=== PATIENT | male | born 1975 | race African-American/Black ===

== ENCOUNTER 2021-03-01 15:09 | Emergency (ER) | payer MEDICAID ==
[~2021-03-01] VITALS: Ht 175.3 cm; Wt 70.0 kg
[2021-03-01] MEDS ORDERED: ACETAMINOPHEN 325MG TABLET PO STA (15:26)
[2021-03-01] MEDS ORDERED: LIDOCAINE HCL 1% 20ML VIAL (Pyxis) INJ INFIL NR (17:15)
[2021-03-01] MEDS ORDERED: NAPR-681 PO (17:43)
[2021-03-01 18:07] VITALS: BP 138/77
== END 2021-03-01 18:08 | disposition home or self-care (01) ==
LOC: ER 15:09
DX: S62.336A Displaced fracture of neck of fifth metacarpal bone, right hand, initial encounter for closed fracture (principal); X58.XXXA Exposure to other specified factors, initial encounter; Y93.89 Activity, other specified; Y92.89 Other specified places as the place of occurrence of the external cause; Y99.8 Other external cause status; Z98.890 Other specified postprocedural states
CPT/HCPCS: 73110; 73130; 99284; J3490